=== PATIENT | female | born 1935 | race Caucasian/White ===

== ENCOUNTER 2016-12-08 08:15 | Inpatient (IN) | payer OTHER ==
--- NOTE | 2016-11-18 15:45 | PAT Medication Instructions ---
Service Date Nov 18, 2016. Current Home Medication List Acetaminophen (Tylenol), 650 MG PO PRN Alendronate/Cholecalciferol (Fosamax+D 70MG/2800 Iu), 1 TABLET PO WK Alprazolam (Xanax), 0.5 MG PO PRN Amlodipine (Norvasc), 5 MG PO NOON Aspirin Enteric Coated (Ecotrin Or Generic), 81 MG PO QAM Atorvastatin (Lipitor), 40 MG PO QPM Buspirone Hcl (Buspirone Hcl), 10 MG PO BID Calcium W/ Vitamins D & K (Viactiv), 1 TAB PO QPM Carvedilol (Coreg), 3.125 MG PO BID Clopidogrel (Plavix), 75 MG PO QAM Hydrochlorothiazide (Hctz), 12.5 MG PO QAM Irbesartan (Irbesartan), 1 TAB PO QPM Levothyroxine Sodium (Synthroid), 50 MCG PO QAM Nitroglycerin (Nitroglycerin Transdermal), 1 DOSE TOP UD Nitroglycerin (Nitrostat), 0.4 MG UT PRN Oxycodone/Acetaminophen 5MG/325MG (Percocet 5MG/325MG), 0.5 TABLET PO Q4-6H Oxycodone/Acetaminophen 5MG/325MG (Percocet 5MG/325MG), 1-2 TABLETS PO Q4H PRN for Pain Paroxetine (Paxil), 10 MG PO QAM Psyllium (Metamucil), 1 DOSE PO QAM Pyridoxine (Vitamin B6), 100 MG PO QAM Medication Instructions For Your Scheduled Surgery Alendronate/Cholecalciferol (Fosamax+D 70MG/2800 Iu), 1 TABLET PO WK (continue as directed) - Check with surgeon/prescribing physician for instructions: Clopidogrel (Plavix), 75 MG PO QAM Aspirin Enteric Coated (Ecotrin Or Generic), 81 MG PO QAM - Hold the following medications 24 hours prior to surgery: Nitroglycerin (Nitroglycerin Transdermal), 1 DOSE TOP UD - Hold the following medications the morning of surgery: Psyllium (Metamucil), 1 DOSE PO QAM Hydrochlorothiazide (Hctz), 12.5 MG PO QAM - Take the following medications the morning of surgery with a sip of water: Acetaminophen (Tylenol), 650 MG PO PRN (if needed) Alprazolam (Xanax), 0.5 MG PO PRN (if needed) Amlodipine (Norvasc), 5 MG PO NOON Buspirone Hcl (Buspirone Hcl), 10 MG PO BID Carvedilol (Coreg), 3.125 MG PO BID Levothyroxine Sodium (Synthroid), 50 MCG PO QAM Nitroglycerin (Nitrostat), 0.4 MG UT PRN Oxycodone/Acetaminophen 5MG/325MG (Percocet 5MG/325MG), 0.5 TABLET PO Q4-6H ( okay to take up to 4 hours prior to surgery if needed) Oxycodone/Acetaminophen 5MG/325MG (Percocet 5MG/325MG), 1-2 TABLETS PO Q4H PRN for Pain (okay to take up to 4 hours prior to surgery if needed) Paroxetine (Paxil), 10 MG PO QAM - Hold the following medications as scheduled the night before surgery: Irbesartan (Irbesartan), 1 TAB PO QPM - Take the following medications as scheduled the night before surgery: Pyridoxine (Vitamin B6), 100 MG PO QAM Nitroglycerin (Nitrostat), 0.4 MG UT PRN (if needed) Oxycodone/Acetaminophen 5MG/325MG (Percocet 5MG/325MG), 0.5 TABLET PO Q4-6H ( if needed) Oxycodone/Acetaminophen 5MG/325MG (Percocet 5MG/325MG), 1-2 TABLETS PO Q4H PRN for Pain (if needed) Carvedilol (Coreg), 3.125 MG PO BID Calcium W/ Vitamins D & K (Viactiv), 1 TAB PO QPM Buspirone Hcl (Buspirone Hcl), 10 MG PO BID Atorvastatin (Lipitor), 40 MG PO QPM Alprazolam (Xanax), 0.5 MG PO PRN (if needed) Acetaminophen (Tylenol), 650 MG PO PRN (if needed) If you have any questions please call us at [phone] or [phone] or [phone]
[2016-11-18 16:19] LABS: BASO % 0.6 %; BASO ABS # 0.04 K/uL (0-0.2); COMPLETE YES; HEMATOCRIT 35.9 % (37-47); IG% 0.3 %; LYMPH % 24.7 %; LYMPH ABS # 1.54 K/uL (1.2-3.4); MEAN CELL VOLUME 84.7 fL (80-100); MEAN CORPUSCULAR HEMOGLOBIN 28.5 pg (25-34); MEAN CORPUSCULAR HGB CONC 33.7 g/dl (32-36); MEAN PLATELET VOLUME 9.1 fL (7.4-10.4); MONO % 18.8 %; NEUT % 50.6 %; PLATELET COUNT 283 K/uL (130-400); RED BLOOD COUNT 4.24 M/uL (4.2-5.4); WHITE BLOOD COUNT 6.24 K/uL (4.8-10.8)
[2016-11-18 16:28] LABS: BUN/CREATININE RATIO 19.8 (10-20); CALCIUM 9.4 mg/dl (8.5-10.1); CREATININE 0.95 mg/dl (0.60-1.20); POTASSIUM 4.4 mmol/L (3.5-5.1)
[2016-11-18 16:39] LABS: URINE APPEARANCE CLEAR (CLEAR); URINE BILIRUBIN NEG (NEG); URINE COLOR YELLOW; URINE NITRITE NEG (NEG); URINE SPECIFIC GRAVITY 1.015 (1.000-1.030); UROBILINOGEN NEG (NEG); ZZUR CULT IF INDIC CLEAN CATCH NO
[2016-11-18 16:51] LABS: MANUAL MICROSCOPIC REQUIRED? NO; REVIEW REQ? NO
[~2016-12-08] VITALS: Ht 154.9 cm; Wt 49.5 kg
[2016-12-08] VITALS (11 sets, daily range): BP systolic 118–163; BP diastolic 64–73; PULSE 54–83; TEMP 36.2–36.7; O2SAT 94–100; Ht 154.9 cm; Wt 49.5 kg
[~2016-12-08 08:15] MED LIST: ACET-1311 PO; ALPR-411 PO; AMLO-110 PO; ASPI81TA21 PO; ATOR-24 PO; BUSP-8 PO; CALC8.5C PO; CARV3.122 PO; CEFAZOLIN 1000MG/55 ML D5W IV SCH; CLOP1TAB15 PO; FSMD/70 PO; HYDR25TA4 PO; IRBE1TAB50 PO; LACTATED RINGER'S 1000ML 1,000 ML IV SCH; LEVO50TA PO; NITR0.2D3 TOP; NTRGSL/4 UT; OXYC-57 PO; PARO1TAB27 PO; PSYL0.524 PO; PYRI100T4 PO
[2016-12-08] MEDS ORDERED: MIDAZOLAM HCL 1 MG/ML 2ML VIAL ONE (09:02)
[2016-12-08] MEDS ORDERED: FENTANYL CITRATE INJ 50 MCG/1 ML 2 ML VIAL ONE ×3 (09:02→11:06)
--- NOTE | 2016-12-08 09:18 | History & Physical Bridge Note ---
H&P Re-Evaluation Bridge Note: I have examined the patient, reviewed the History & Physical and in the interval since the performance of the History & Physical I have noted the following changes of clinical significance: No changes noted
--- NOTE | 2016-12-08 09:19 | History and Physical ---
History & Physical Date Dec 08, 2016. Chief Complaint Back and leg pain History of Present Illness The patient is a 81 year old female with complaints of back and leg pain Additional History Hepatic Disease: No Endocrine Disorder: No Kidney Disease: No Hypertension: Yes Heart Disease: No Bleeding Tendencies: No Infectious Diseases: No Allergies Coded Allergies: WAYNE Inhibitors (Verified Allergy, Severe, TONGUE AND LIPS SWELLED, 12/08/16) Gentamicin (Verified Allergy, Severe, RED AND SWOLLEN EYES, 12/08/16) Lisinopril (Verified Allergy, Severe, LIPS SWELLED, 12/08/16) Quinapril (Verified Allergy, Severe, TONGUE SWELLED, 12/08/16) Polymyxin B (Verified Allergy, Unknown, UNKNOWN, 12/08/16) Tuberculin (Unverified Allergy, Unknown, REDNESS, SKIN REACTION, 12/08/16) Nitrofurantoin (Verified Adverse Reaction, Unknown, LOST APEITITE-UPSET STOMACH, 12/08/16) Home Medications Scheduled Acetaminophen (Tylenol), 650 MG PO PRN Alendronate/Cholecalciferol (Fosamax+D 70MG/2800 Iu), 1 TABLET PO WK Alprazolam (Xanax), 0.5 MG PO PRN Amlodipine (Norvasc), 5 MG PO NOON Aspirin Enteric Coated (Ecotrin Or Generic), 81 MG PO QAM Atorvastatin (Lipitor), 40 MG PO QPM Buspirone Hcl (Buspirone Hcl), 10 MG PO BID Calcium W/ Vitamins D & K (Viactiv), 1 TAB PO QPM Carvedilol (Coreg), 3.125 MG PO BID Clopidogrel (Plavix), 75 MG PO QAM Hydrochlorothiazide (Hctz), 12.5 MG PO QAM Irbesartan (Irbesartan), 1 TAB PO QPM Levothyroxine Sodium (Synthroid), 50 MCG PO QAM Nitroglycerin (Nitroglycerin Transdermal), 1 DOSE TOP UD Nitroglycerin (Nitrostat), 0.4 MG UT PRN Paroxetine (Paxil), 10 MG PO QAM Psyllium (Metamucil), 1 DOSE PO QAM Pyridoxine (Vitamin B6), 100 MG PO QAM Scheduled PRN Oxycodone/Acetaminophen 5MG/325MG (Percocet 5MG/325MG), 1-2 TABLETS PO Q4H PRN for Pain Physical Examination Skin: warm/dry, no rash Eyes: normal inspection, EOMI, sclerae normal ENT: normal ENT inspection, pharynx normal Head: normocephalic, atraumatic Neck: supple, no adenopathy, trachea midline Respiratory/Chest: lungs clear, normal breath sounds, no respiratory distress Cardiovascular: regular rate, rhythm, no edema, no murmur Abdomen / GI: normal bowel sounds, non tender Back: normal inspection Extremities: normal inspection, normal range of motion Neurologic/Psych: no motor/sensory deficits, alert, normal reflexes, oriented x 3 Diagnosis Lumbar spinal stenosis Plan of Treatment Lumbar decompression L4 5 L5-S1 with in situ versus instrumented fusion
[2016-12-08] MEDS ORDERED: BACITRACIN 50000 UNIT VIAL ONE (09:22)
[2016-12-08] MEDS ORDERED: BUPIVACAINE/EPINEPHRINE 0.5% MPF 1:200,000 10 ML VIAL ONE (09:28)
[2016-12-08] MEDS ORDERED: HYDROmorphone INJ 2 MG/ML SYR/VIAL ONE ×2 (10:09→11:42)
[2016-12-08] MEDS ORDERED: ROCURONIUM BROMIDE 10 MG/ML 5 ML VIAL IV ONE ×7 (10:23→11:41)
[2016-12-08] MEDS ORDERED: DEXAMETHASONE SOD INJ 4 MG/ML VIAL ONE (10:23)
[2016-12-08] MEDS ORDERED: EpHEDrine SULFATE 50MG/5ML SYR ONE (10:23)
[2016-12-08] MEDS ORDERED: PROPOFOL IV EMULSION 10 MG/ML 20 ML VIAL IV ONE (10:23)
[2016-12-08] MEDS ORDERED: PHENYLEPHRINE 100MCG/ML 5ML SYR ONE (10:23)
[2016-12-08] MEDS ORDERED: LIDOCAINE HCL 2% 2 ML VIAL (20MG/ML) ONE (10:23)
[2016-12-08] MEDS ORDERED: FLOSEAL HEMOSTATIC MATRIX 10ML TOP ONE (11:32)
[2016-12-08] MEDS ORDERED: ONDANSETRON INJ 2 MG/ML 2 ML VIAL ONE ×2 (11:42→11:43)
[2016-12-08] MEDS ORDERED: NEOSTIGMINE METHYLSULFATE 1 MG/ML 10ML VIAL ONE (11:43)
[2016-12-08] MEDS ORDERED: GLYCOPYRROLATE INJ 0.2 MG/ML VIAL ONE (11:43)
[2016-12-08] MEDS ORDERED: KETOROLAC TROMETHAMINE 30 MG/ML VIAL ONE (11:43)
[2016-12-08] MEDS ORDERED: SODIUM CHLORIDE 0.9% 1000ML 1,000 ML IV SCH (11:44)
[2016-12-08] MEDS ORDERED: ALUMINUM/MAGNESIUM SUSP 30 ML UDC PO PRN (11:45)
[2016-12-08] MEDS ORDERED: ALPRAZOLAM 0.5 MG TAB PO PRN (11:45)
[2016-12-08] MEDS ORDERED: HYDROmorphone INJ 1 MG/ML SYR IV PRN (11:45)
[2016-12-08] MEDS ORDERED: DO NOT ADMINISTER PNEUMOCOCCAL VACCINE PRN ×2 (11:45)
[2016-12-08] MEDS ORDERED: ACETAMINOPHEN 500 MG TAB PO PRN (11:45)
[2016-12-08] MEDS ORDERED: BISACODYL 10 MG SUPP PR PRN (11:45)
[2016-12-08] MEDS ORDERED: FAMOTIDINE 20 MG TAB PO PRN (11:45)
[2016-12-08] MEDS ORDERED: EpHEDrine SULFATE INJ 50 MG/ML AMP IV PRN (11:45)
[2016-12-08] MEDS ORDERED: NITROGLYCERIN 0.4 MG SL PER TAB CHARGE UT PRN (11:45)
[2016-12-08] MEDS ORDERED: FENTANYL CITRATE INJ 50 MCG/1 ML 2 ML VIAL IV PRN (11:45)
[2016-12-08] MEDS ORDERED: LABETALOL HCL IV 5 MG/ML 20ML IV PRN (11:45)
[2016-12-08] MEDS ORDERED: MAGNESIUM HYDROXIDE SUSP 30 ML UDC PO PRN (11:45)
[2016-12-08] MEDS ORDERED: DO NOT ADMINISTER FLU VACCINE PRN ×3 (11:45)
[2016-12-08] MEDS ORDERED: ACETAMINOPHEN IV 100 ML IV PRN (11:45)
[2016-12-08] MEDS ORDERED: ATROPINE SULFATE 0.1 MG/ML 5ML SYR IV PRN (11:45)
[2016-12-08] MEDS ORDERED: PROMETHAZINE HCL INJ 12.5 MG in SODIUM CHLORIDE 0.9% 50ML 50 ML IV PRN (11:45)
[2016-12-08] MEDS ORDERED: LORAZEPAM INJ 0.5 MG in SYRINGE 0.75 ML IV PRN (11:45)
[2016-12-08] MEDS ORDERED: NALOXONE HCL 0.4 MG/1 ML VIAL/CARP IV PRN ×2 (11:45)
[2016-12-08] MEDS ORDERED: SOD PHOSPHATE/SOD BIPHOSPHATE ENEMA 132 ML BTL PR PRN (11:45)
[2016-12-08] MEDS ORDERED: METOCLOPRAMIDE HCL INJ 5 MG/ML 2 ML VIAL IV PRN (11:45)
[2016-12-08] MEDS ORDERED: hydrOXYzine HCL 25 MG TAB PO PRN (11:45)
[2016-12-08] MEDS ORDERED: LORAZEPAM 0.5 MG TAB PO PRN (11:45)
[2016-12-08] MEDS ORDERED: MEPERIDINE HCL 25 MG/ML CARP IV PRN (11:45)
[2016-12-08] MEDS ORDERED: ONDANSETRON INJ 2 MG/ML 2 ML VIAL IV PRN ×2 (11:45)
--- NOTE | 2016-12-08 11:47 | DIAGNOSTIC IMAGING REPORT ---
LUMBAR SPINE 2 OR 3 VIEW CLINICAL HISTORY: L4-S1 DECOMPRESSION/FUSION TECHNIQUE: Image intensifier COMPARISON STUDY: None FINDINGS: Findings consistent with image intensifier usage 4 and L4-S1 lumbar laminectomy and fusion. Disc spacers present at L5-S1. IMPRESSION: Image intensifier usage for a low lumbar laminectomy and fusion The above report was generated using voice recognition software. It may contain grammatical, syntax or spelling errors. Electronically signed by: Mark Anthony Anguiano M.D. 12/08/2016 11:46 AM Dictated Date/Time: 12/08/2016 11:45 AM
--- NOTE | 2016-12-08 11:51 | [facility] Operative Report ---
Operative Report Operative Date Dec 08, 2016. Pre-Operative Diagnosis Lumbar spinal stenosis Post-Operative Diagnosis Lumbar spinal stenosis Procedure(s) Performed #1 lumbar decompression medial facetectomies foraminotomies L3 4 L4 5 L5-S1. #2 posterior spinal fusion L4 5 L5-S1. #3 placement of posterior segmental instrumentation L4 5 L5-S1. #4 interbody fusion L5-S1. #5 placement peek cage 12 x 22 mm at L5-S1. #6 placement of locally harvested morcellized autograft in the posterior lateral gutters. #7 placement of infuse collagen sponge combined Master graft in the posterior lateral gutters. Surgeon Dr. Brannon Dickinson Poultry Husbandry Teacher Surgeon(s) Praveena Reed PA-C Estimated Blood Loss 300ml Findings Severe spinal stenosis Specimens None per surgeon Description of Procedure Patient was met with preoperatively case discussed all questions are dressed. After informed consent patient was taken back to the operative suite and underwent intubation placed in a prone position the Randal table on top of the Ameya frame. All bony eminences were well-padded eyes were inspected to ensure no external pressure. Lumbar spines prepped and draped nostril fashion. Sharp dissection with the assistance of Bovie cautery was performed onto an exposing the lamina and transverse processes of L4 5 and the sacral alar. From a caudal to cephalad fashion complete laminectomy of L5 L4 partial laminectomy of L3 was performed addressing severe lateral recess and foraminal stenosis. Pedicle screws then placed in L4-L5 and S1 levels bilaterally with the assistance of fluoroscopy in the purposes austen placed. Through a transforaminal approach on the right a complete discectomy of L5-S1 was performed and plate created to subcortical bleeding bone and a 12 x 22 mm peek cage filled with bone graft was tapped in position. The rods were then locked and final position bilaterally. The transverse processes of 45 and the sacral alar burred to subcortical bleeding bone. Infuse calm sponge mask graft locally harvested morcellized autograft was placed in the posterior gutters. A 15 round MAGALI drain was inserted. Incision was then closed with 1 Vicryl in the fascia 2-0 Vicryl subcutaneously for Monocryl for final skin closure Steri- Strip sterile dressing placed. Patient we can take PACU stable condition. Please note Praveena Hernadez was present throughout the entire procedure involved in patient positioning complex portions of the procedure and final skin closure. I attest to the content of the Intraoperative Record and any orders documented therein. Any exceptions are noted below.
[2016-12-08] MEDS ORDERED: HYDROmorphone HCL 0.5MG/ML 50 ML CASSETTE ONE (12:05)
--- NOTE | 2016-12-08 12:37 | Anesthesiology Progress Note ---
Anesthesia Post Op Note Date & Time Dec 08, 2016 at 12:37 Vital Signs Pain Intensity: 0 Vital Signs Past 12 Hours Date Time Temp Pulse Resp B/P (MAP) Pulse Ox O2 Delivery O2 Flow Rate FiO2 12/08/16 12:25 66 16 143/64 100 Oxymask 4 12/08/16 12:15 65 14 139/66 100 Oxymask 10 12/08/16 12:05 71 14 148/70 100 Oxymask 10 12/08/16 11:59 36. 72 14 153/90 100 Oxymask 10 12/08/16 08:49 36.5 55 20 163/65 97 Room Air Notes Mental Status: alert / awake / arousable, participated in evaluation Pt Amnestic to Procedure: Yes Nausea / Vomiting: adequately controlled Pain: adequately controlled Airway Patency, RR, SpO2: stable & adequate BP & HR: stable & adequate Hydration State: stable & adequate Neuraxial Anesthesia: was administered, sensory block is resolving Anesthetic Complications: no major complications apparent
[2016-12-08] MEDS: HYDROmorphone HCL 0.5MG/ML 50 ML CASSETTE IV PRN ×3 (13:52→22:59)
[2016-12-08] MEDS: LACTATED RINGER'S 1000ML 1,000 ML IV SCH ×2 (15:18→21:56)
--- NOTE | 2016-12-08 15:53 | History and Physical ---
History & Physical Date & Time of Service: Dec 08, 2016 at 15:39 Chief Complaint: Lumbar Spinal Stenosis Primary Care Physician: Guero Hollingsworth M.D. History of Present Illness Source: patient Patient is an 81 yo female who presented to the hospital for previously scheduled lumbar decompression-fusion surgery. She states she has had years of back pain and was supposed to have surgery 3 years ago but it was delayed when she had an DC after a cath. The patient has experienced worsening back pain and decreased activity since then and has opted for definitive management of her spinal stenosis. She was seen postoperatively and denies any complaints at this time. Pain is well controlled. She is eating lunch and denies any nausea or abdominal pain. She has mild hoarseness but no sore throat. Social History Smoking Status: Never Smoker Multi-Drug Resistant Organisms History of MDRO: No Allergies Coded Allergies: WAYNE Inhibitors (Verified Allergy, Severe, TONGUE AND LIPS SWELLED, 12/08/16) Gentamicin (Verified Allergy, Severe, RED AND SWOLLEN EYES, 12/08/16) Lisinopril (Verified Allergy, Severe, LIPS SWELLED, 12/08/16) Quinapril (Verified Allergy, Severe, TONGUE SWELLED, 12/08/16) Polymyxin B (Verified Allergy, Unknown, UNKNOWN, 12/08/16) Tuberculin (Unverified Allergy, Unknown, REDNESS, SKIN REACTION, 12/08/16) Nitrofurantoin (Verified Adverse Reaction, Unknown, LOST APEITITE-UPSET STOMACH, 12/08/16) Home Medications Scheduled Acetaminophen (Tylenol), 650 MG PO PRN Alendronate/Cholecalciferol (Fosamax+D 70MG/2800 Iu), 1 TABLET PO WK Alprazolam (Xanax), 0.5 MG PO PRN Amlodipine (Norvasc), 5 MG PO NOON Aspirin Enteric Coated (Ecotrin Or Generic), 81 MG PO QAM Atorvastatin (Lipitor), 40 MG PO QPM Buspirone Hcl (Buspirone Hcl), 10 MG PO BID Calcium W/ Vitamins D & K (Viactiv), 1 TAB PO QPM Carvedilol (Coreg), 3.125 MG PO BID Clopidogrel (Plavix), 75 MG PO QAM Hydrochlorothiazide (Hctz), 12.5 MG PO QAM Irbesartan (Irbesartan), 1 TAB PO QPM Levothyroxine Sodium (Synthroid), 50 MCG PO QAM Nitroglycerin (Nitroglycerin Transdermal), 1 DOSE TOP UD Nitroglycerin (Nitrostat), 0.4 MG UT PRN Paroxetine (Paxil), 10 MG PO QAM Psyllium (Metamucil), 1 DOSE PO QAM Pyridoxine (Vitamin B6), 100 MG PO QAM Scheduled PRN Oxycodone/Acetaminophen 5MG/325MG (Percocet 5MG/325MG), 1-2 TABLETS PO Q4H PRN for Pain Physical Exam Vital Signs Date Time Temp Pulse Resp B/P (MAP) Pulse Ox O2 Delivery O2 Flow Rate FiO2 12/08/16 15:06 36.7 64 16 132/67 (88) 100 Nasal Cannula 2.0 12/08/16 14:35 36.4 83 18 118/64 (82) 96 Nasal Cannula 2.0 12/08/16 13:20 36. 57 16 130/60 100 Nasal Cannula 4 12/08/16 13:05 36. 60 16 133/60 100 Nasal Cannula 4 12/08/16 12:55 36. 58 16 137/60 100 Nasal Cannula 4 12/08/16 12:45 36. 60 16 138/63 100 Nasal Cannula 4 12/08/16 12:35 36. 62 16 139/60 100 Nasal Cannula 4 12/08/16 12:25 66 16 143/64 100 Nasal Cannula 4 12/08/16 12:15 65 14 139/66 100 Oxymask 10 12/08/16 12:05 71 14 148/70 100 Oxymask 10 12/08/16 11:59 36. 72 14 153/90 100 Oxymask 10 12/08/16 08:49 36.5 55 20 163/65 97 Room Air Impression Advanced Directives Existing Living Will: Yes Existing Power of Resource Teacher: Yes VTE Prophylaxis VTE Risk Assessment Done? Y/N: Yes Risk Level: Low
--- NOTE | 2016-12-08 15:56 | Medical Consult ---
Consultation Date of Consultation: Dec 08, 2016. Attending Physician: Brannon Dickinson D.O. History of Present Illness Patient is an 81 yo female who presented to the hospital for previously scheduled lumbar decompression-fusion surgery. She states she has had years of back pain and was supposed to have surgery 3 years ago but it was delayed when she had an PA after a cath. The patient has experienced worsening back pain and decreased activity since then and has opted for definitive management of her spinal stenosis. She was seen postoperatively and denies any complaints at this time. Pain is well controlled. She is eating lunch and denies any nausea or abdominal pain. She has mild hoarseness but no sore throat. Past Medical/Surgical History PMHx: CAD PA HTN Arthritis Lumbar spinal stenosis SurgHx: Right shoulder replacement Right hip fracture with austen placement D&C x 2 tonsillectomy appendectomy total hysterectomy carpal tunnel surgery Social History Smoking Status: Never Smoker Smokeless Tobacco Use: No Marital Status: Housing Status: lives with family Allergies Coded Allergies: WAYNE Inhibitors (Verified Allergy, Severe, TONGUE AND LIPS SWELLED, 12/08/16) Gentamicin (Verified Allergy, Severe, RED AND SWOLLEN EYES, 12/08/16) Lisinopril (Verified Allergy, Severe, LIPS SWELLED, 12/08/16) Quinapril (Verified Allergy, Severe, TONGUE SWELLED, 12/08/16) Polymyxin B (Verified Allergy, Unknown, UNKNOWN, 12/08/16) Tuberculin (Unverified Allergy, Unknown, REDNESS, SKIN REACTION, 12/08/16) Nitrofurantoin (Verified Adverse Reaction, Unknown, LOST APEITITE-UPSET STOMACH, 12/08/16) Current Inpatient Medications Current Inpatient Medications Medications (Trade) Dose Ordered Sig/Faustina Route Start Time Stop Time Status Last Admin Dose Admin Cefazolin Sodium 55 ml @ 100 mls/hr PREOP IV 12/08/16 06:00 12/08/16 18:00 12/08/16 09:43 100 MLS/HR Fentanyl Citrate (Fentanyl Inj) 50 mcg Q5M PRN IV 12/08/16 11:45 12/08/16 16:45 Hydromorphone HCl (Dilaudid Inj) 0.5 mg Q5M PRN IV 12/08/16 11:45 12/08/16 16:45 Meperidine HCl (Demerol Inj) 25 mg Q5M PRN IV 12/08/16 11:45 12/08/16 16:45 Ondansetron HCl (Zofran Inj) 4 mg ONE PRN IV 12/08/16 11:45 12/08/16 16:45 Labetalol HCl (Normodyne IV) 5 mg Q5M PRN IV 12/08/16 11:45 12/08/16 16:45 Ephedrine Sulfate (EpHEDrine SULFATE INJ) 5 mg Q5M PRN IV 12/08/16 11:45 12/08/16 16:45 Atropine Sulfate (Atropine Sulfate 0.1MG/Ml Inj) 0.5 mg Q1M PRN IV 12/08/16 11:45 12/08/16 16:45 Dexamethasone Sodium Phosphate 6 mg/Syringe 1.5 ml @ 1 mls/min Q8H IV 12/08/16 16:00 12/09/16 08:02 Promethazine HCl 12.5 mg/Sodium Chloride 50.5 ml @ 202 mls/hr Q6H PRN IV 12/08/16 11:45 01/07/17 11:44 Ondansetron HCl (Zofran Inj) 4 mg Q6H PRN IV 12/08/16 11:45 01/07/17 11:44 Metoclopramide HCl (Reglan Inj) 10 mg Q6H PRN IV 12/08/16 11:45 01/07/17 11:44 Lorazepam (Ativan Tab) 0.5 mg Q8H PRN PO 12/08/16 11:45 01/07/17 11:44 Lorazepam 0.5 mg/ Syringe 1 ml @ 1 mls/min Q8H PRN IV 12/08/16 11:45 01/07/17 11:44 Pneumococcal Polysaccharide Vaccine 1 ea PRN PRN N/A 12/08/16 11:45 01/07/17 11:44 Influenza Virus Vacc Triv Types A&B 1 ea PRN PRN N/A 12/08/16 11:45 01/07/17 11:44 Polyethylene (Miralax Powder Packet) 17 gm Q6 PO 12/10/16 06:00 01/09/17 05:59 Bisacodyl (Dulcolax Supp) 10 mg DAILY PRN HI 12/08/16 11:45 01/07/17 11:44 Magnesium Hydroxide (Milk Of Magnesia Susp) 30 ml DAILY PRN PO 12/08/16 11:45 01/07/17 11:44 Hydromorphone HCl (Dilaudid Inj) 0.5 mg Q3H PRN IV 12/09/16 06:00 12/23/16 05:59 Oxycodone HCl (Roxicodone Immediate Rel Tab) 5-10mg prn moderate to sev... Q4H PRN PO 12/09/16 06:00 12/23/16 05:59 Cefazolin Sodium 1000 mg/Dextrose 55 ml @ 100 mls/hr Q8H IV 12/08/16 18:00 12/09/16 02:32 Lactated Ringer's 1,000 ml @ 150 mls/hr Q6H40M IV 12/08/16 14:00 01/07/17 13:59 12/08/16 15:18 150 MLS/HR Acetaminophen (Tylenol Tab) 1,000 mg Q8H PRN PO 12/08/16 11:45 01/07/17 11:44 Acetaminophen 100 ml @ 400 mls/hr Q8H PRN IV 12/08/16 11:45 01/07/17 11:44 Naloxone HCl (Narcan Inj) 0.1 mg Q5M PRN IV 12/08/16 11:45 01/07/17 11:44 Senna/Docusate Sodium (Senokot S Tab) 2 tab HS PO 12/08/16 21:00 01/07/17 20:59 Sodium Biphosphate/ Sodium Phosphate (Fleet Enema) 132 ml ONE PRN HI 12/08/16 11:45 01/07/17 11:44 Hydroxyzine HCl (Vistaril Tab) 25 mg Q8H PRN PO 12/08/16 11:45 01/07/17 11:44 Al Hydroxide/Mg Hydroxide (Maalox Susp) 30 ml Q6H PRN PO 12/08/16 11:45 01/07/17 11:44 Famotidine (Pepcid Tab) 20 mg Q12 PRN PO 12/08/16 11:45 01/07/17 11:44 Diphenhydramine HCl (Benadryl Cap) 25 mg Q6H PRN PO 12/08/16 11:45 01/07/17 11:44 Miscellaneous Information (Discontinue COUNSELOR EDUCATION PROFESSOR) 1 ea 0600 ONCE N/A 12/09/16 06:00 12/09/16 06:01 Naloxone HCl (Narcan Inj) 0.1 mg Q5M PRN IV 12/08/16 11:45 12/09/16 06:00 Hydromorphone HCl (Dilaudid Powersaw Supervisor) 25 mg PRN PRN IV 12/08/16 11:45 12/09/16 06:00 12/08/16 15:05 25 MG Sodium Chloride 1,000 ml @ 15 mls/hr Q24H IV 12/08/16 11:44 12/09/16 06:00 Alprazolam (Xanax Tab) 0.5 mg DAILY PRN PO 12/08/16 11:45 01/07/17 11:44 Amlodipine Besylate (Norvasc Tab) 5 mg DAILY PO 12/09/16 09:00 01/08/17 08:59 Aspirin (Ecotrin Tab) 81 mg QAM PO 12/09/16 09:00 01/08/17 08:59 Atorvastatin Calcium (Lipitor Tab) 40 mg QPM PO 12/08/16 21:00 01/07/17 20:59 Carvedilol (Coreg Tab) 3.125 mg BID PO 12/08/16 21:00 01/07/17 20:59 Hydrochlorothiazide (Hydrochlorothiazide Tab) 12.5 mg QAM PO 12/09/16 09:00 01/08/17 08:59 Future Hold Levothyroxine Sodium (Synthroid Tab) 50 mcg DAILYBB PO 12/09/16 06:00 01/08/17 05:59 Nitroglycerin (Nitrostat Tab) 0.4 mg UD PRN UT 12/08/16 11:45 01/07/17 11:44 Paroxetine HCl (pAXil TAB) 10 mg QAM PO 12/09/16 09:00 01/08/17 08:59 Buspirone HCl (Buspar Tab) 10 mg BID PO 12/08/16 21:00 01/07/17 20:59 Hydromorphone HCl (Dilaudid Inj) 1 mg Q3H PRN IV 12/09/16 06:00 12/23/16 05:59 Irbesartan (Avapro Tab) 300 mg QAM PO 12/09/16 09:00 01/08/17 08:59 Review of Systems Constitutional: No fever, No chills, No sweats, No weight loss, No weakness Eyes: No worsening of vision, No eye pain, No redness, No diplopia ENT: No unusual epistaxis, No sore throat, No trouble swallowing Respiratory: No cough, No sputum, No wheezing, No shortness of breath Cardiovascular: No chest pain, No edema, No claudication, No palpitations Abdomen: No pain, No nausea, No vomiting, No diarrhea Musculoskeletal: No joint pain, No swelling, No calf pain Genitourinary - Female: No dysuria, No urinary frequency, No urinary urgency Neurologic: No numbness/tingling, No vertigo, No balance problems Psychiatric: No depression symptoms Endocrine: No fatigue, No excessive thirst, No excessive urination Integumentary: No rash, No itch, No bleeding Physical Exam Date Time Temp Pulse Resp B/P (MAP) Pulse Ox O2 Delivery O2 Flow Rate FiO2 12/08/16 15:06 36.7 64 16 132/67 (88) 100 Nasal Cannula 2.0 12/08/16 14:35 36.4 83 18 118/64 (82) 96 Nasal Cannula 2.0 12/08/16 13:20 36. 57 16 130/60 100 Nasal Cannula 4 12/08/16 13:05 36. 60 16 133/60 100 Nasal Cannula 4 12/08/16 12:55 36. 58 16 137/60 100 Nasal Cannula 4 12/08/16 12:45 36. 60 16 138/63 100 Nasal Cannula 4 12/08/16 12:35 36. 62 16 139/60 100 Nasal Cannula 4 12/08/16 12:25 66 16 143/64 100 Nasal Cannula 4 12/08/16 12:15 65 14 139/66 100 Oxymask 10 12/08/16 12:05 71 14 148/70 100 Oxymask 10 12/08/16 11:59 36. 72 14 153/90 100 Oxymask 10 12/08/16 08:49 36.5 55 20 163/65 97 Room Air General Appearance: WD/WN, no apparent distress Head: normocephalic, atraumatic Eyes: PERRL, EOMI, sclerae normal ENT: hearing grossly normal Neck: supple, no JVD, no carotid bruits, trachea midline Respiratory/Chest: lungs clear, normal breath sounds, no respiratory distress Cardiovascular: regular rate, rhythm, no edema, no gallop, no JVD, no murmur Abdomen/GI: normal bowel sounds, non tender, soft, no organomegaly Back: no CVA tenderness Extremities/Musculoskelatal: no calf tenderness, normal capillary refill, no pedal edema Neurologic/Psych: no motor/sensory deficits, alert, normal mood/affect, oriented x 3 Skin: normal color, warm/dry, no rash Assessment & Plan Lumbar stenosis: Postoperative from Lumbar decompression fusion surgery -POD #0 -pain control, activity, drains, and DVT prophylaxis as per Ortho -monitor for blood loss anemia -bowel regimen -incentive spirometry -resume Plavix when ok from Ortho standpoint CAD: -patient underwent a cath in 2013 after an abnormal EKG and stress; right after the cath she experienced an PA likely related to PCI thru an occluded vessel, details are unknown as the patient had this done at another facility; can request records for more information -follows with Cardiology and had a TTE and cardiac clearance prior to this surgery -occluded vessel has been medically managed -continue statin, ASA, plavix, BB HTN: -continue irbsartan, amlodipine, coreg -hold HCTZ until discharge HYPOTHYROIDISM: -continue levothyroxine ANXIETY: -continue home medications
[2016-12-08] MEDS: DEXAMETHASONE INJ 6 MG in SYRINGE 0 ML IV SCH ×2 (16:00→23:47)
[2016-12-08] MEDS: CEFAZOLIN IV 1,000 MG in DEXTROSE 5% 50ML 50 ML IV SCH (18:25)
[2016-12-08] MEDS: DOCUSATE SODIUM/SENNA 50/8.6MG TAB PO SCH (21:49)
[2016-12-08] MEDS: ATORVASTATIN 40 MG TAB PO SCH (21:49)
[2016-12-08] MEDS: CARVEDILOL 3.125 MG TAB PO SCH (21:50)
[2016-12-09] VITALS (7 sets, daily range): BP systolic 142–166; BP diastolic 65–83; PULSE 62–83; TEMP 36.3–36.8; O2SAT 94–99
[2016-12-09] MEDS: CEFAZOLIN IV 1,000 MG in DEXTROSE 5% 50ML 50 ML IV SCH (02:00)
[2016-12-09] MEDS ORDERED: NURSING VERBAL MED ORDER ONE (05:45)
[2016-12-09] MEDS: LEVOTHYROXINE 50 MCG TAB PO SCH (05:50)
[2016-12-09] MEDS ORDERED: DC PCA ONE (06:00)
[2016-12-09] MEDS ORDERED: HYDROmorphone INJ 0.5 MG/0.5 ML SYR IV PRN (06:00)
[2016-12-09] MEDS ORDERED: HYDROmorphone INJ 1 MG/ML SYR IV PRN (06:00)
[2016-12-09] MEDS: OXYCODONE HCL IR 5 MG TAB (IMMEDIATE RELEASE) PO PRN ×2 (06:02→17:03)
[2016-12-09 06:30] LABS: COMPLETE YES; HEMATOCRIT 29.5 % (37-47); IG% 0.4 %; LYMPH % 3.7 %; LYMPH ABS # 0.62 K/uL (1.2-3.4); MEAN CELL VOLUME 84.3 fL (80-100); MEAN CORPUSCULAR HEMOGLOBIN 29.4 pg (25-34); MEAN CORPUSCULAR HGB CONC 34.9 g/dl (32-36); MONO % 5.1 %; NEUT % 90.8 %; PLATELET COUNT 249 K/uL (130-400); WHITE BLOOD COUNT 16.83 K/uL (4.8-10.8)
[2016-12-09 06:57] LABS: BUN/CREATININE RATIO 16.8 (10-20); CALCIUM 8.8 mg/dl (8.5-10.1); CREATININE 0.75 mg/dl (0.60-1.20); POTASSIUM 3.8 mmol/L (3.5-5.1)
--- NOTE | 2016-12-09 07:38 | Orthopedic Progress Note ---
Orthopedic Progress Note Date of Service Dec 09, 2016. Subjective Post OP Day: 1 Reports: feeling well Additional Notes: Nickolas is postoperative day 1 lumbar decompression instrument fusion L4 5, L5- S1. She's doing well. No complaints. No radicular leg pain this morning. MAGALI drain output last shift with 70 mL. H&H are 10.3 and 29.5 respectively. Objective calves soft nontender, N/V intact, dressing C/D/I, A&O x3, toes mobile, CMS intact Date Time Temp Pulse Resp B/P (MAP) Pulse Ox O2 Delivery O2 Flow Rate FiO2 12/09/16 07:17 36.8 77 18 146/65 (92) 95 Room Air 12/09/16 03:18 36.5 83 16 142/76 (98) 94 Room Air 12/08/16 23:40 Room Air 12/08/16 22:55 36.4 73 16 152/71 (98) 95 Room Air 12/08/16 19:41 36.3 66 16 143/70 (94) 94 Room Air 12/08/16 17:41 36.2 54 18 144/69 (94) 98 Nasal Cannula 2.0 12/08/16 16:55 36.3 65 16 128/70 (89) 98 Nasal Cannula 2.0 12/08/16 16:00 36.3 63 17 128/68 (88) 98 Nasal Cannula 2.0 12/08/16 15:15 100 Nasal Cannula 2.0 12/08/16 15:06 36.7 64 16 132/67 (88) 100 Nasal Cannula 2.0 12/08/16 14:35 36.4 83 18 118/64 (82) 96 Nasal Cannula 2.0 12/08/16 14:20 36.2 63 135/73 (93) 100 4.0 12/08/16 13:50 Nasal Cannula 12/08/16 13:50 Nasal Cannula 4.0 12/08/16 13:50 36.2 61 14 138/72 (94) 96 Nasal Cannula 4.0 12/08/16 13:20 36. 57 16 130/60 100 Nasal Cannula 4 12/08/16 13:05 36. 60 16 133/60 100 Nasal Cannula 4 12/08/16 12:55 36. 58 16 137/60 100 Nasal Cannula 4 12/08/16 12:45 36. 60 16 138/63 100 Nasal Cannula 4 12/08/16 12:35 36. 62 16 139/60 100 Nasal Cannula 4 12/08/16 12:25 66 16 143/64 100 Nasal Cannula 4 12/08/16 12:15 65 14 139/66 100 Oxymask 10 12/08/16 12:05 71 14 148/70 100 Oxymask 10 12/08/16 11:59 36. 72 14 153/90 100 Oxymask 10 12/08/16 08:49 36.5 55 20 163/65 97 Room Air Laboratory Results 24 Hours: Test 12/09/16 06:04 White Blood Count 16.83 K/uL Red Blood Count 3.50 M/uL Hemoglobin 10.3 g/dL Hematocrit 29.5 % Mean Corpuscular Volume 84.3 fL Mean Corpuscular Hemoglobin 29.4 pg Mean Corpuscular Hemoglobin Concent 34.9 g/dl Platelet Count 249 K/uL Mean Platelet Volume 9.0 fL Neutrophils (%) (Auto) 90.8 % Lymphocytes (%) (Auto) 3.7 % Monocytes (%) (Auto) 5.1 % Eosinophils (%) (Auto) 0.0 % Basophils (%) (Auto) 0.0 % Neutrophils # (Auto) 15.30 K/uL Lymphocytes # (Auto) 0.62 K/uL Monocytes # (Auto) 0.85 K/uL Eosinophils # (Auto) 0.00 K/uL Basophils # (Auto) 0.00 K/uL Assessment & Plan Assessment: Postoperative day 1 lumbar decompression with instrument fusion L4 through S1 doing well Plan: She will start physical therapy today. DC GEOPHYSICAL E LOGGER pump and switched to oral pain control medications. DVT prophylaxis is in the form teds and SCDs. Maintain MAGALI drain. Anticipate discharge home over the weekend. Discharge Planning Discharge Planning: home DVT Prophylaxis: TEDs
[2016-12-09] MEDS ORDERED: HYDROCHLOROTHIAZIDE 25 MG TAB PO SCH (09:00)
[2016-12-09] MEDS: DEXAMETHASONE INJ 6 MG in SYRINGE 0 ML IV SCH (09:03)
[2016-12-09] MEDS: CARVEDILOL 3.125 MG TAB PO SCH ×2 (09:03→20:37)
[2016-12-09] MEDS: ASPIRIN 81 MG ECTAB PO SCH (09:04)
[2016-12-09] MEDS: PAROXETINE 20 MG TAB PO SCH (09:04)
[2016-12-09] MEDS: IRBESARTAN 150 MG TAB PO SCH (09:05)
[2016-12-09] MEDS: AMLODIPINE BESYLATE 5 MG TAB PO SCH (09:05)
--- NOTE | 2016-12-09 09:23 | Anesthesiology Progress Note ---
Anesthesia Post Op Note Date & Time Dec 09, 2016 at 09:23 Vital Signs Vital Signs Past 12 Hours Date Time Temp Pulse Resp B/P (MAP) Pulse Ox O2 Delivery O2 Flow Rate FiO2 12/09/16 08:56 Room Air 12/09/16 07:17 36.8 77 18 146/65 (92) 95 Room Air 12/09/16 03:18 36.5 83 16 142/76 (98) 94 Room Air 12/08/16 23:40 Room Air 12/08/16 22:55 36.4 73 16 152/71 (98) 95 Room Air Notes Mental Status: alert / awake / arousable, participated in evaluation Pt Amnestic to Procedure: Yes Nausea / Vomiting: adequately controlled Pain: adequately controlled Airway Patency, RR, SpO2: stable & adequate BP & HR: stable & adequate Hydration State: stable & adequate Anesthetic Complications: no major complications apparent
[2016-12-09] MEDS: ATORVASTATIN 40 MG TAB PO SCH (21:27)
[2016-12-09] MEDS: DOCUSATE SODIUM/SENNA 50/8.6MG TAB PO SCH (21:28)
[2016-12-10 05:55] VITALS: BP 174/74; PULSE 63
[2016-12-10] MEDS: IRBESARTAN 150 MG TAB PO SCH (05:56)
[2016-12-10] MEDS: AMLODIPINE BESYLATE 5 MG TAB PO SCH (05:56)
[2016-12-10] MEDS: POLYETHYLENE (MIRALAX) 17 GM PACK PO SCH ×2 (05:56→13:15)
[2016-12-10] MEDS: LEVOTHYROXINE 50 MCG TAB PO SCH (05:56)
--- NOTE | 2016-12-10 07:42 | Progress Note ---
Internal Med Progress Note Date of Service: Dec 09, 2016. Provider Documentation: This is the bill for 12/09/16 SUBJECTIVE: The patient was seen and examined Has some back pain Denies any other symptoms OBJECTIVE: Vital Signs-as noted below Exam: General-No distress Eyes-normal ENT-normal Neck-Supple Lungs-clear Heart-regular,no murmur appreciated Abdomen-Benign,no masses,bowel sound present Extremities-Trace edema bilaterally Neuro-AAOx3 Lab data as noted below. ASSESSMENT & PLAN: Lumbar stenosis: Postoperative from Lumbar decompression fusion surgery -POD #1 -pain control, activity, drains, and DVT prophylaxis as per Ortho Leukocytosis Likely secondary to Steroid Doubt any infection Monitor Anemia Hb dropped to 10 Will monitor CAD: -patient underwent a cath in 2013 after an abnormal EKG and stress; right after the cath she experienced an AK likely related to PCI thru an occluded vessel, details are unknown as the patient had this done at another facility; can request records for more information -follows with Cardiology and had a TTE and cardiac clearance prior to this surgery -occluded vessel has been medically managed -continue statin, ASA, Plavix, BB -Denies any symptoms -no acute symptoms HTN: -continue irbesartan, amlodipine, coreg -hold HCTZ until discharge -Remains satble HYPOTHYROIDISM: -continue levothyroxine ANXIETY: -continue home medications Vital Signs: Date Time Temp Pulse Resp B/P (MAP) Pulse Ox O2 Delivery O2 Flow Rate FiO2 12/10/16 05:55 63 174/74 (107) 12/09/16 23:05 36.3 67 17 166/71 (102) 99 Room Air 12/09/16 20:30 62 164/74 (104) 12/09/16 19:15 Room Air 12/09/16 15:45 Room Air 12/09/16 15:07 36.4 66 16 164/73 (103) 95 Room Air 12/09/16 11:36 77 16 142/65 (90) 96 12/09/16 08:56 Room Air
[2016-12-10] MEDS ORDERED: RXC5 PO (07:46)
--- NOTE | 2016-12-10 07:47 | Discharge Instructions ---
Discharge Instructions Date of Service Dec 10, 2016. Admission Reason for Admission: Lumbar Spinal Stenosis Discharge Discharge Diagnosis / Problem: spinal stenosis Discharge Goals Goal(s): Decrease discomfort Activity Recommendations Activity Limitations: per Instructions/Follow-up section . Instructions / Follow-Up Instructions / Follow-Up ACTIVITY RECOMMENDATIONS: SELF CARE INSTRUCTIONS AFTER THORACIC/LUMBAR FUSIONS 1. You may walk to your tolerance. It is good exercise for your legs and back. Expect some back and intermittent leg aches and pains. 2. You may perform "counter-top" level activities (make a sandwich, devin with a project, etc.). 3. No bending or lifting of more than 10 pounds or back twisting of any nature (roll like a log when turning in bed). 4. You may ride in a car for 20-30 minutes at a time. No driving until after your first visit with your doctor. 5. Frequent changes of position and restricting sitting to 30 minutes at a time will help limit the amount of back spasms and stiffness you may experience. 6. You may discontinue the use of ambulatory aids (cane, crutches, etc.) once your strength and confidence allow. 7. You may control clerk auditing the shower and let water strike your incision when you arrive home at least once daily. Do not take a tub bath, sit in a hot tub or go into a swimming pool until after your first recheck in the office. SPECIAL CARE INSTRUCTIONS: VERY IMPORTANT TO READ AND REVIEW A. Your surgical incision has been closed with a cosmetic suture under the skin that will dissolve in about 6 weeks. In 14 days, you can use a pair of clean scissors and cut the suture that is left outside of the skin at the ends of your incision. 1. The small skin tapes can be removed 7 days after surgery if they have not fallen off by that point. 2. You may keep the wound open to air as much as possible to promote healing after post-op day number 5 unless told otherwise by your doctor. 3. If you think the wound looks like it is becoming infected (redness or worsening drainage) and/or you are experiencing fever, chill or worsening back pain and muscle spasms, contact the office so that we may evaluate you as soon as possible. B. Complications are uncommon, but please contact us if you have any signs or symptoms of: 1. wound infection (fever higher than 102.5 degrees F, redness, separation of wound, drainage, or increasing pain from the incision) 2. blood clots in legs (pain, swelling, redness and warmth in legs) 3. urinary tract infection (fever higher than 102.5 degrees F, burning upon urination or increased frequency of urination) 4. nerve problems (inability to walk on your toes or heels, numbness, loss of bowel or bladder control) 5. any other symptoms that concern you C. Please call the office at if you have any concerns or questions about your operation or recovery. D. No smoking! Smoking drastically decreases the chance of a solid fusion. E. Do not take any anti-inflammatory medications (Indocin, Advil, Motrin, Aspirin, Naprosyn, etc.) as these may inhibit the chance of a solid fusion. Tylenol is okay to take for pain. MANAGING PAIN AFTER SPINAL SURGERY 1. Narcotic medication is intended for short-term use and will be provided for surgical pain. Surgical pain usually lasts for a period of 4-6 weeks. Narcotic medication includes Percocet, Vicodin, Darvocet, Tylenol #3 or Lortab. 2. Longer-term pain is more appropriately treated with non-narcotic medication such as Tylenol ES. 3. Muscle spasm is not appropriately treated with narcotics. Muscle relaxers such as Soma, Flexeril or Skelaxin can be used along with Tylenol ES. 4. Remember that we all live with some "aches and pains". This is not unusual or uncommon after an injury or as we get older. a. Back pain is expected and may include muscle spasms for 4 to 6 weeks after surgery. The pain should gradually improve. If the pain worsens for no apparent reason, please contact the office. b. Intermittent leg pain may also be experienced and should not be concerned about unless it worsens for no apparent reason. If so, please contact the office. 5. We will provide appropriate medication within the normal guidelines of their prescribed use. We will also be very cautious and aware of potential abuse and extended duration of patients' medication needs. a. Pain medications are for your comfort and to assist with sleep and rest so that the tissue can heal. They are not provided in order to return to normal activity and should not be used through the day. To do so or worsening pain at night can result from ongoing tissue damage and development of tolerance to the prescribed medicine. 6. Please allow 2-3 days to process refills. Prescriptions will not be mailed but must be picked up at the office. FOLLOW UP VISIT: Keep your scheduled follow-up appointment. Any questions, please call the office at . Current Hospital Diet Patient's current hospital diet: Regular Diet Discharge Diet Recommended Diet: Regular Diet Procedures Procedures Performed: #1 lumbar decompression medial facetectomies foraminotomies L3 4 L4 5 L5-S1. #2 posterior spinal fusion L4 5 L5-S1. #3 placement of posterior segmental instrumentation L4 5 L5-S1. #4 interbody fusion L5-S1. #5 placement peek cage 12 x 22 mm at L5-S1. #6 placement of locally harvested morcellized autograft in the posterior lateral gutters. #7 placement of infuse collagen sponge combined Master graft in the posterior lateral gutters. Pending Studies Studies pending at discharge: no Medical Emergencies . Who to Call and When: Medical Emergencies: If at any time you feel your situation is an emergency, please call 911 immediately. . Non-Emergent Contact Non-Emergency issues call your: Primary Care Provider . "Provider Documentation" section prepared by Brannon Dickinson. . VTE Core Measure Inpt VTE Proph given/why not?: Alan Araiza, SCD's
[2016-12-10 07:50] VITALS: BP 138/67; PULSE 51; TEMP 36.5; O2SAT 99
[2016-12-10] MEDS: CARVEDILOL 3.125 MG TAB PO SCH (10:39)
[2016-12-10] MEDS: ASPIRIN 81 MG ECTAB PO SCH (10:39)
[2016-12-10] MEDS: PAROXETINE 20 MG TAB PO SCH (10:39)
[2016-12-10 14:45] VITALS: BP 138/67; PULSE 51; TEMP 36.5; O2SAT 99
--- NOTE | 2016-12-10 14:56 | Discharge Summary ---
Orthopedic Discharge Summary Admission Date/Reason Dec 08, 2016 at 09:30 Lumbar Spinal Stenosis. Discharge Date/Disposition Dec 10, 2016 Home with services Diagnosis Principal Diagnosis: Lumbar spinal stenosis Admission Physical Exam As per Admitting History & Physical. Hospital Course Patient underwent lumbar depression fusion tolerated this well was taken to the orthopedic floor postoperatively. Postoperative day #1 she was up and amatory progressing nicely through postoperative day #2 pain well controlled MAGALI drain decreased appropriately substernally discharge home. Discharge orders and instructions found in the chart for further review. Discharge Instructions Please refer to the electronic Patient Visit Report (Discharge Instructions) for additional information.
[2016-12-10] MEDS: OXYCODONE HCL IR 5 MG TAB (IMMEDIATE RELEASE) PO PRN (16:07)
--- NOTE | 2016-12-10 16:59 | Progress Note ---
Internal Med Progress Note Date of Service: Dec 10, 2016. Provider Documentation: SUBJECTIVE: The patient was seen and examined Has some back pain Denies any other symptoms Much better today and likely to be discharged today OBJECTIVE: Vital Signs-as noted below Exam: General-No distress at rest Eyes-normal ENT-normal Neck-Supple Lungs-clear Heart-regular,no murmur appreciated Abdomen-Benign,no masses,bowel sound present Extremities-Trace edema bilaterally Neuro-AAOx3 Lab data as noted below. ASSESSMENT & PLAN: Lumbar stenosis: Postoperative from Lumbar decompression fusion surgery -POD # 2 -pain control, activity, drains, and DVT prophylaxis as per Ortho Leukocytosis Likely secondary to Steroid Doubt any infection No signs of infection Anemia Hb dropped to 10 Will monitor CAD: -patient underwent a cath in 2013 after an abnormal EKG and stress; right after the cath she experienced an NM likely related to PCI thru an occluded vessel, details are unknown as the patient had this done at another facility; can request records for more information -follows with Cardiology and had a TTE and cardiac clearance prior to this surgery -occluded vessel has been medically managed -continue statin, ASA, Plavix, BB -Denies any symptoms -no acute symptoms HTN: -continue irbesartan, amlodipine, coreg -hold HCTZ until discharge -Remains stable HYPOTHYROIDISM: -continue levothyroxine ANXIETY: -continue home medications Medically stable Can have CBC in AM if staying Vital Signs: Date Time Temp Pulse Resp B/P (MAP) Pulse Ox O2 Delivery O2 Flow Rate FiO2 12/10/16 14:45 36.5 51 17 99 Room Air 12/10/16 07:50 36.5 51 17 138/67 (90) 99 Room Air 12/10/16 07:45 Room Air 12/10/16 05:55 63 174/74 (107) 12/09/16 23:05 36.3 67 17 166/71 (102) 99 Room Air 12/09/16 20:30 62 164/74 (104) 12/09/16 19:15 Room Air
== END 2016-12-10 17:30 | disposition home health service (06) | DRG 460 ==
LOC: C.ACU 08:15 → C.3E 09:30 → ENRESERV 13:19
PROVIDERS: ADMIT Orthopaedic Surgery Orthopaedic Surgery of the Spine; ATTEND Orthopaedic Surgery Orthopaedic Surgery of the Spine
PROC: 0SG1071 Fusion of 2 or more Lumbar Vertebral Joints with Autologous Tissue Substitute, Posterior Approach, Posterior Column, Open Approach (ICD-10-PCS; principal; 2016-12-08 10:15)
PROC: 01NB0ZZ Release Lumbar Nerve, Open Approach (ICD-10-PCS; principal; 2016-12-08 10:15)
PROC: 0SG30AJ Fusion of Lumbosacral Joint with Interbody Fusion Device, Posterior Approach, Anterior Column, Open Approach (ICD-10-PCS; principal; 2016-12-08 10:15)
PROC: 0ST20ZZ Resection of Lumbar Vertebral Disc, Open Approach (ICD-10-PCS; principal; 2016-12-08 10:15)
PROC: 0SG3071 Fusion of Lumbosacral Joint with Autologous Tissue Substitute, Posterior Approach, Posterior Column, Open Approach (ICD-10-PCS; principal; 2016-12-08 10:15)
DX: M48.06 Spinal stenosis, lumbar region (principal); I25.10 Atherosclerotic heart disease of native coronary artery without angina pectoris; I10 Essential (primary) hypertension; M19.90 Unspecified osteoarthritis, unspecified site; Z96.611 Presence of right artificial shoulder joint; E03.9 Hypothyroidism, unspecified; D64.9 Anemia, unspecified